=== PATIENT | female | born 1930 | race American Indian/Alaskan Native ===

== ENCOUNTER 2017-09-20 09:30 | Outpatient (CLI) | payer MEDICARE ==
[2017-09-20 10:38] LABS: Blood Urea Nitrogen 14 mg/dL (7-17)
--- NOTE | 2017-09-20 23:19 | Cat Scan Report ---
FINAL REPORT PROCEDURE: CT ABDOMEN PELVIS W CON TECHNIQUE: Computerized axial tomography of the abdomen and pelvis was performed after the IV injection of iodinated nonionic contrast. HISTORY: LLQ PAIN W/ GUARDING MASS COMPARISON: No prior studies are available for comparison. FINDINGS: Spleen, pancreas and adrenal glands are within normal limits. Bilateral kidneys demonstrate uniform enhancement without hydronephrosis. Urinary bladder is partially filled. Aorta is of normal caliber. There is no free fluid or free air. Gallbladder is unremarkable. Right lobe liver demonstrates an oval well-defined cystic lesion measuring 1.1 x 0.7 centimeters posteriorly. Small bowel loops are within normal limits. Appendix is not distinctly visualized. There are no inflammatory changes in the right lower quadrant. Mild degree degenerative changes are noted involving the lumbar spine. Vertebral alignment and height are within normal limits. IMPRESSION: A small well-defined cystic lesion of right lobe liver most likely represents a a small simple cyst. Otherwise no acute intra-abdominal or pelvic pathology.
== END 2017-09-20 09:31 | disposition home or self-care (01) ==
LOC: CT 09:30
PROVIDERS: ATTEND Internal Medicine
DX: R19.04 Left lower quadrant abdominal swelling, mass and lump (principal); K76.9 Liver disease, unspecified; Z88.1 Allergy status to other antibiotic agents
CPT/HCPCS: 36415; 74177; 82565; 84520; Q9967